=== PATIENT | female | born 2000 | race African-American/Black ===

== ENCOUNTER 2023-03-29 20:48 | Observation (INO) | payer OTHER ==
[2023-03-29 20:59] VITALS: BMI 25.8
[2023-03-29 22:58] LABS: EOS % 0.6 % (0-4.5); HEMATOCRIT 18.4 % (32.4-45.2); LYMPH % 30.8 % (8-40); MCHC 27.8 g/dl (32.0-36.0); MEAN CELL VOLUME 57.8 fl (80-96); MEAN PLT VOLUME 8.7 fl (7.5-11.1); MONO % 6.4 % (3.8-10.2); NEUT % 61.2 % (42.8-82.8); PLATELET COUNT 499 10^3/uL (134-434); RBC 3.19 M/mm3 (3.60-5.2); RDW 36.9 % (11.6-15.6); WHITE BLOOD COUNT 7.4 K/mm3 (4.0-10.0)
[2023-03-29 23:00] LABS: MCH 16.1 pg (25.7-33.7)
[2023-03-29 23:01] LABS: HEMOGLOBIN 5.1 GM/dL (10.7-15.3)
[2023-03-29 23:25] LABS: CALCIUM 8.4 mg/dL (8.5-10.1)
[2023-03-29 23:26] LABS: ALBUMIN 3.6 g/dl (3.4-5.0); BLOOD UREA NITROGEN 3.5 mg/dL (7-18)
[2023-03-29 23:30] LABS: CREATININE 0.5 mg/dL (0.55-1.3)
[2023-03-29 23:32] LABS: BILIRUBIN,TOTAL 0.2 mg/dL (0.2-1); TOT PROT 7.3 g/dl (6.4-8.2)
[2023-03-29 23:39] LABS: ANISOCYTOSIS 3+; MACROCYTOSIS 0; OVALOCYTE 1+; TARGET CELLS 2+; TEAR DROP CELLS 1+
[2023-03-30 00:36] LABS: RETICULOCYTES 1.81 % (0.5-1.5)
[2023-03-30 08:33] VITALS: BP 117/73; PULSE 73; RESP 18; TEMP 98.4
[2023-03-30 08:55] LABS: HEMATOCRIT 24.7 % (32.4-45.2); HEMOGLOBIN 7.8 GM/dL (10.7-15.3); MCH 21.6 pg (25.7-33.7); MCHC 31.7 g/dl (32.0-36.0); MEAN CELL VOLUME 68.1 fl (80-96); MEAN PLT VOLUME 8.5 fl (7.5-11.1); PLATELET COUNT 431 10^3/uL (134-434); RBC 3.63 M/mm3 (3.60-5.2); RDW 38.4 % (11.6-15.6); WHITE BLOOD COUNT 8.5 K/mm3 (4.0-10.0)
[2023-03-30 09:22] LABS: MAGNESIUM 2.1 mg/dL (1.8-2.4)
[2023-03-30 09:26] LABS: PHOSPHOROUS 3.6 mg/dL (2.5-4.9)
== END 2023-03-30 10:28 | disposition home or self-care (01) ==
LOC: JER 20:48 → JERBED 03-30 00:15
PROVIDERS: ADMIT Internal Medicine
PROC: 30233N1 Transfusion of Nonautologous Red Blood Cells into Peripheral Vein, Percutaneous Approach (ICD-10-PCS; principal; 2023-03-30)
DX: D64.9 Anemia, unspecified (principal); N92.0 Excessive and frequent menstruation with regular cycle; Z29.8 Encounter for other specified prophylactic measures; Z91.018 Allergy to other foods
CPT/HCPCS: 36415; 36430; 80053; 82728; 83010; 83540; 83550; 83615; 83735; 84100; 84466; 84703; 85025; 85027; 85045; 85660; 86850; 86900; 86901; 86922; 93005; 93010; 99285-25; G0378; P9058

== ENCOUNTER 2024-07-11 09:09 | Emergency (ER) | payer OTHER ==
[2024-07-11 09:27] VITALS: BP 122/87; PULSE 106; RESP 18; TEMP 100.6; BMI 30.2
[2024-07-11] MEDS ORDERED: ACETAMINOPHEN 500 MG TABLET (FP) ONE (09:55)
[2024-07-11 10:59] LABS: THROAT:GRP A STREP NOT DETECTED (NOTDETECTED)
[2024-07-11 11:56] LABS: HIV INTERPRETATION NEGATIVE (NEGATIVE)
== END 2024-07-11 11:25 | disposition home or self-care (01) ==
LOC: JERFT 09:09
DX: J10.1 Influenza due to other identified influenza virus with other respiratory manifestations (principal); R05.9 Cough, unspecified; Z20.822 Contact with and (suspected) exposure to COVID-19
CPT/HCPCS: 0241U-QW; 36415; 86803; 87389; 87651; 99283-25

== ENCOUNTER 2024-12-02 18:39 | Emergency (ER) | payer OTHER ==
[2024-12-02 18:46] VITALS: BP 115/77; PULSE 73; RESP 20; TEMP 98.2; BMI 30.2
[2024-12-02 22:27] LABS: HCV DIAGNOSTIC IN-HOUSE W/RFLX NON-REACTIVE (NONREACTIVE); HIV INTERPRETATION NEGATIVE (NEGATIVE)
== END 2024-12-02 20:57 | disposition home or self-care (01) ==
LOC: JERFT 18:39 → JER 18:39 → JERFT 20:57
DX: R05.9 Cough, unspecified (principal); J06.9 Acute upper respiratory infection, unspecified; R07.9 Chest pain, unspecified; R09.81 Nasal congestion; R09.82 Postnasal drip; R09.3 Abnormal sputum
CPT/HCPCS: 0241U-QW; 36415; 71046-TC-FY; 86803; 87389; 99284-25